=== PATIENT | female | born 1980 | race Caucasian/White ===

== ENCOUNTER 2021-01-24 15:21 | Emergency (ER) | payer MEDICAID, SELFPAY ==
[2021-01-24 15:47] VITALS: BP 119/81; PULSE 88; RESP 16; TEMP 36.6; O2SAT 98; BMI 28.3
--- NOTE | 2021-01-24 17:31 | ED_ITS ---
HPI - Abdominal Pain General: Chief Complaint: Abdominal Pain Stated Complaint: headahce, nausea, pressure in groin Time Seen by Provider: 01/24/21 17:31 Source: patient Mode of arrival: ambulatory Limitations: no limitations History of Present Illness: HPI narrative: Patient comes in today with complaints of right lower quadrant abdominal pain. Patient appears well. Patient appears in mild to moderate pain. Patient states pain has been there for about 3 days. Has worsened over the last 1 day. Patient reports that pain is in the right lower quadrant of the abdomen/ovarian area. Patient also reports some pain going down her right leg and radiating into her back. MD elicited complaint: abdominal pain Location: RLQ Severity: moderate Radiation: back Relieving factors: rest Associated Symptoms: Reports no associated symptoms Related Data: Date of Last Menstrual Period: 01/22/21 Review of Systems General: Reports: 10 or more systems reviewed and unremarkable except in HPI and below GI: Reports: abdominal pain [facility] ED Female Reproductive History: Date of last menstrual period: 01/22/21 Physical Exam Const: COMMON NORMALS: no acute distress and patient oriented x3 GENERAL APPEARANCE: cooperative HENMT: COMMON NORMALS: normocephalic and Normal external nose present HEAD & SCALP: normal to inspection and normocephalic NOSE: Normal external nose present MOUTH: Normal oral and palatal mucosa present Eye: GENERAL EYE: appearance normal, both eyes and all related structures Neck/C-Spine: COMMON NORMALS: full ROM Chest: COMMONS NORMALS: normal inspection of the chest Resp: COMMON NORMALS: normal respiratory effort EFFORT & INSPECTION: Yes able to speak in complete sentences Cardio: COMMON NORMALS: regular rate and regular rhythm RATE: regular rate RHYTHM: regular rhythm GI: COMMON NORMALS: Soft to palpation AUSCULTATION: Yes normoactive bowel sounds PALPATION: Yes Soft to palpation and Yes Tenderness to palpation present (GI) Details: RLQ : COMMON NORMALS: Yes no CVA tenderness BLADDER/KIDNEY EXAM: Yes no CVA tenderness Back/Pelvis: COMMON NORMALS: no CVA tenderness and thoracic and lumbar spine normal to inspection Extremity: COMMON NORMALS: normal to inspection Neuro: COMMON NORMALS: patient oriented x3 and moves all extremities Psych: COMMON NORMALS: mental status grossly normal and cooperative Skin: COMMON NORMALS: no rashes or lesions noted GENERAL SKIN EXAM: no rashes or lesions noted Course Vital Signs: Vital signs: Vital Signs Temperature 97.9 F 01/24/21 15:47 Pulse Rate 88 01/24/21 15:47 Respiratory Rate 16 01/24/21 15:47 Blood Pressure 119/81 01/24/21 15:47 Pulse Oximetry 97 01/24/21 17:45 MDM - Abdominal Pain MDM Narrative: Medical decision making narrative: Patient comes in today with complaints of right lower quadrant abdominal pain radiating into the right inguinal area and low back. Patient reports pain is worsened over the last 2 days. Patient also reports some radiation of pain into her right upper leg. Abdomen is soft with some right lower quadrant abdominal pain. Exam otherwise is normal. Vital signs are normal. Differential diagnosis includes but not limited to acute appendicitis, right ovarian cyst, musculoskeletal pain. Laboratory values were unremarkable. Urinalysis was clear. test was negative. CT of the abdomen pelvis noted no abnormality. Reviewed exam with patient recommended treatment for a musculoskeletal type pain suggestive of either may be a right hip bursitis or some lumbar sacral pain. Patient reported understanding agreed to plan. Lab Data: Labs: Lab Results 01/24/21 01/24/21 01/24/21 Range/Units 17:52 18:08 18:08 WBC 8.9 (4.0-10.0) 10^3/ uL RBC 4.54 (4.1-5.3) 10^6/u L Hgb 14.9 (11.5-15.3) g/dL Hct 45.1 (37.0-47.0) % MCV 99.3 H (81-99) fL MCH 32.8 (28.0-34.0) pg MCHC 33.0 (30.0-36.0) g/dL RDW 13.6 (12.1-15.1) % Plt Count 303 (130-400) 10^3/c mm MPV 10.6 H (7.4-10.4) fL Neut % (Auto) 68.3 % Lymph % (Auto) 23.4 % Tompkins % (Auto) 4.4 % Eos % (Auto) 2.7 % Baso % (Auto) 0.9 % Neut # (Auto) 6.08 (1.8-7.7) 10^3/u L Lymph # (Auto) 2.1 (0.8-4.8) 10^3/u L Tompkins # (Auto) 0.4 (0.2-0.9) 10^3/u L Eos # (Auto) 0.2 (0.0-0.8) 10^3/u L Baso # (Auto) 0.1 (0.0-0.1) 10^3/u L Nucleated RBC % (a uto) 0 % Nucleated RBCs # 0.0 /100WBC Sodium 141 (136-145) mmol/L Potassium 3.5 (3.5-5.1) mmol/L Chloride 102 (98-107) mmol/L Carbon Dioxide 24 (22-29) mmol/L Anion Gap 18.5 (5-19) BUN 5 L (6-20) mg/dL Creatinine 0.5 (0.5-0.9) mg/dL GFR Calculation 136.0 H (90-130) mL/min Glucose 107 (65-115) mg/dL Calculated Osmolal ity 290 (285-295) mOsm/k g Calcium 9.0 (8.5-10.5) mg/dL Total Bilirubin 0.2 (0.15-1.2) mg/dL AST 15 (0-32) U/L ALT 12 (0-33) U/L Alkaline Phosphata se 67 (35-105) IU/L Total Protein 7.9 (6.6-8.7) g/dL Albumin 4.7 (3.5-5.2) g/dL Globulin 3.2 (1.3-4.6) g/dL HCG, Qual (Negative) Urine Color Yellow (Yellow) Urine Appearance Clear (CLEAR) Urine pH 5 (5-7) Ur Specific Gravit y 1.010 (1.005-1.030) Urine Protein Neg (Negative) Urine Glucose (UA) Norm (Normal) Urine Ketones Negative (Negative) Urine Blood Neg (Negative) Urine Nitrate Negative (Negative) Urine Bilirubin Neg (Negative) Urine Urobilinogen Norm (Negative) mg/dL Ur Leukocyte Tammie ase Negative (Negative) 01/24/21 Range/Units 18:08 WBC (4.0-10.0) 10^3/ uL RBC (4.1-5.3) 10^6/u L Hgb (11.5-15.3) g/dL Hct (37.0-47.0) % MCV (81-99) fL MCH (28.0-34.0) pg MCHC (30.0-36.0) g/dL RDW (12.1-15.1) % Plt Count (130-400) 10^3/c mm MPV (7.4-10.4) fL Neut % (Auto) % Lymph % (Auto) % Tompkins % (Auto) % Eos % (Auto) % Baso % (Auto) % Neut # (Auto) (1.8-7.7) 10^3/u L Lymph # (Auto) (0.8-4.8) 10^3/u L Tompkins # (Auto) (0.2-0.9) 10^3/u L Eos # (Auto) (0.0-0.8) 10^3/u L Baso # (Auto) (0.0-0.1) 10^3/u L Nucleated RBC % (a uto) % Nucleated RBCs # /100WBC Sodium (136-145) mmol/L Potassium (3.5-5.1) mmol/L Chloride (98-107) mmol/L Carbon Dioxide (22-29) mmol/L Anion Gap (5-19) BUN (6-20) mg/dL Creatinine (0.5-0.9) mg/dL GFR Calculation (90-130) mL/min Glucose (65-115) mg/dL Calculated Osmolal ity (285-295) mOsm/k g Calcium (8.5-10.5) mg/dL Total Bilirubin (0.15-1.2) mg/dL AST (0-32) U/L ALT (0-33) U/L Alkaline Phosphata se (35-105) IU/L Total Protein (6.6-8.7) g/dL Albumin (3.5-5.2) g/dL Globulin (1.3-4.6) g/dL HCG, Qual Negative (Negative) Urine Color (Yellow) Urine Appearance (CLEAR) Urine pH (5-7) Ur Specific Gravit y (1.005-1.030) Urine Protein (Negative) Urine Glucose (UA) (Normal) Urine Ketones (Negative) Urine Blood (Negative) Urine Nitrate (Negative) Urine Bilirubin (Negative) Urine Urobilinogen (Negative) mg/dL Ur Leukocyte Tammie ase (Negative) Discharge Plan Discharge Patient Disposition: Home Clinical Impression: Acute pain of right hip Abdominal pain Qualifiers: Abdominal location: right lower quadrant Qualified Code(s): R10.31 - Right lower quadrant pain Condition: Stable Prescriptions: New diclofenac potassium 50 mg tablet 50 mg PO Q8H PRN (Reason: pain) Qty: 14 RF: 0 Discharge Orders: Discharge ED (Routine); Ordered 01/24/21 Ordered By: Mariano Reich Referrals: Yaakov Hoyt MD [Primary Care Provider] - Discharge Diet: Usual diet Discharge Activity: Increase activity as tolerated Patient Instructions: Abdominal Pain (ED), Opioid Safety Activity Restrictions/Additional Instructions: Activity as tolerated. Gentle stretching and range of motion exercises for the low back and hip. Increase walking as tolerated. Use ice or heat for further comfort relief. Drink plenty of water with medication. Follow-up with primary care in 3 to 5 days for recheck. Return to the emergency department for new concerns. 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
[2021-01-24 17:45] VITALS: O2SAT 97
--- NOTE | 2021-01-24 17:45 | CTR_ITS ---
PROCEDURE INFORMATION: Exam: CT Abdomen And Pelvis With Contrast Exam date and time: 01/24/2021 6:03 PM Age: 40 years old Clinical indication: Abdominal pain; Localized; Right lower quadrant (rlq); Patient HX: Worsening rlq pain x 3 days radiating into right leg and into back TECHNIQUE: Imaging protocol: Computed tomography of the abdomen and pelvis with contrast. Total images: 231 Radiation optimization: All CT scans at this facility use at least one of these dose optimization techniques: automated exposure control; mA and/or kV adjustment per patient size (includes targeted exams where dose is matched to clinical indication); or iterative reconstruction. Contrast material: OMNI 300; Contrast volume: 95 ml; Contrast route: INTRAVENOUS (IV); COMPARISON: No relevant prior studies available. RADIATION DOSE METRICS: Total DLP (mGy-cm): 1237.68 FINDINGS: Lungs: Limited assessment of the lung bases fails to reveal evidence for active cardiopulmonary process. Liver: No visible hepatic mass or cystic structure. Gallbladder and bile ducts: Normal. No calcified stones. No ductal dilation. Pancreas: Pancreas unremarkable. No visible pancreatic ductal ectasia. Spleen: Normal. No splenomegaly. Adrenal glands: Adrenal glands unremarkable. Kidneys and ureters: No hydronephrosis or perinephric fluid. No visible nephrolithiasis or visible ureterolithiasis. Stomach and bowel: Assessment of the hollow viscus fails to reveal evidence of active or acute pathology. Nonobstructed bowel pattern. No visible acute diverticulitis. No visible adynamic or reactive ileus. Appendix: The appendix is visualized and appears noninflamed. Intraperitoneal space: No visible pneumoperitoneum or intraperitoneal ascites. No visible evidence of mesenteric lymphadenitis or active mesenteritis/panniculitis. Vasculature: Portal vein patent. The abdominal aorta is nonaneurysmal. Multiple phleboliths in the true pelvis. Lymph nodes: No current visible evidence of active mesenteric or retroperitoneal lymphadenopathy. Urinary bladder: Urinary bladder unremarkable. Reproductive: Unremarkable as visualized. Essure stents. Bones/joints: No visible active or acute osseous pathology. Soft tissues: Unremarkable. CT/CT abdomen pelvis w con* [id number] IMPRESSION: Currently no visible evidence for acute abdominal or pelvic pathologic process. Radiation Dose CTDIVOL = (mGy): DLP = 1237.68 (mGy-cm)
[2021-01-24 18:14] LABS: Basophils # 0.1 10^3/uL (0.0-0.1); Basophils % 0.9 %; Eosinophils # 0.2 10^3/uL (0.0-0.8); Eosinophils % 2.7 %; Hematocrit 45.1 % (37.0-47.0); Hemoglobin 14.9 g/dL (11.5-15.3); Lymphocytes # 2.1 10^3/uL (0.8-4.8); Lymphocytes % 23.4 %; Mean Corpuscular Hemoglobin 32.8 pg (28.0-34.0); Mean Corpuscular Volume 99.3 fL (81-99); Mean Platelet Volume 10.6 fL (7.4-10.4); Monocytes # 0.4 10^3/uL (0.2-0.9); Monocytes % 4.4 %; Neutrophils # 6.08 10^3/uL (1.8-7.7); Neutrophils % 68.3 %; Nucleated Red Blood Cells % 0 %; Platelet Count 303 10^3/cmm (130-400); Red Blood Count 4.54 10^6/uL (4.1-5.3); Red Cell Distribution Width 13.6 % (12.1-15.1); White Blood Count 8.9 10^3/uL (4.0-10.0)
[2021-01-24] MEDS: ketorolac 30 mg/mL INJ 15 MG IVP (18:21)
[2021-01-24 18:23] LABS: Add Urine Microscopic? NO; Charge for UA Resulting for Rev
[2021-01-24 18:26] LABS: HCG, Serum Qual Negative (Negative)
--- NOTE | 2021-01-24 18:27 | PC.NURSE ---
pt to CT by stretcher with tech
[2021-01-24] MEDS: iohexol 300 mg/mL 100 mL Btl IV (18:28)
[2021-01-24 18:29] LABS: Bilirubin Urine Neg (Negative); Blood Urine Neg (Negative); Glucose Urine UA Norm (Normal); Ketones Urine Negative (Negative); Leukocyte Esterase Urine Negative (Negative); Nitrate Urine Negative (Negative); Protein Urine Neg (Negative); Urine Appearance Clear (CLEAR); Urine Color Yellow (Yellow); Urobilinogen Urine Norm (Negative); pH Urine 5 (5-7)
[2021-01-24 18:32] LABS: Alanine Aminotransferase 12 U/L (0-33); Albumin Level 4.7 g/dL (3.5-5.2); Alkaline Phosphatase 67 IU/L (35-105); Anion Gap 18.5 (5-19); Aspartate Amino Transferase 15 U/L (0-32); Blood Urea Nitrogen 5 mg/dL (6-20); Carbon Dioxide 24 mmol/L (22-29); Chloride 102 mmol/L (98-107); Globulin 3.2 g/dL (1.3-4.6); Glucose 107 mg/dL (65-115); Osmolality Calculated 290 mOsm/kg (285-295); Potassium 3.5 mmol/L (3.5-5.1); Sodium 141 mmol/L (136-145); Total Bilirubin 0.2 mg/dL (0.15-1.2); Total Protein 7.9 g/dL (6.6-8.7)
[2021-01-24 19:27] VITALS: BP 116/72; PULSE 78; RESP 17; O2SAT 97
== END 2021-01-24 19:27 | disposition home or self-care (01) ==
PROVIDERS: Emergency Provider Nurse Practitioner Family; PCP Family Medicine
DX: R10.31 Right lower quadrant pain (principal); M25.551 Pain in right hip
CPT/HCPCS: 74177; 80053; 81003; 84703; 85025; 96374; 99283; J1885; Q9967

== ENCOUNTER 2023-01-11 09:35 | Emergency (ER) | payer MEDICAID, SELFPAY ==
[2023-01-11 09:47] VITALS: BP 136/86; PULSE 103; RESP 16; TEMP 36.4; O2SAT 99; BMI 30.5
--- NOTE | 2023-01-11 09:54 | XR_ITS ---
WS: [id number] XR hip RT 2-3V wo/w pel* [id number] REASON FOR EXAM: pain FINDINGS: Right hip joint space is intact and relatively well-preserved. Minimal subchondral sclerosis in the acetabulum. No significant abnormality of the femoral head or neck. No soft tissue abnormality. XR/XR hip RT 2-3V wo/w pel* [id number] IMPRESSION: No acute abnormality. 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
--- NOTE | 2023-01-11 18:12 | ED_ITS ---
HPI - Extremity Problem General: Chief complaint: Extremity Injury, Lower Stated complaint: right hip pain Time Seen by Provider: 01/11/23 11:10 Source: patient Mode of arrival: ambulatory Limitations: no limitations History of Present Illness: Patient presents emergency department today for evaluation treatment of approximately 2 weeks of right lateral hip pain radiating down the lateral side of her right upper thigh. Patient denies any known injuries but states that due to her pain, her leg gave out yesterday at her hip causing her to fall. She denies tingling or numbness into the extremity but notes that shooting pain. She hurts worse when she walks on the lateral side of her right foot. She also has worse pain when she sits on her right hip or on the right lateral buttock region. She reports a history of bursitis in the past of both hips and an elbow but, is unaware of any specific injury precipitating onset of her symptoms. She did push mow her yard during this time which acutely worsened her symptoms. Not had any bowel or bladder dysfunction. She has been trying heating pad at home with minimal relief Review of Systems General: Reports: 10 or more systems reviewed and unremarkable except in HPI and below Musc: Reports: extremity pain and joint pain Physical Exam Const: COMMON NORMALS: no acute distress, patient oriented x3 and alert HENMT: COMMON NORMALS: normocephalic, atraumatic and hearing grossly normal bilaterally HEAD & SCALP: normocephalic and atraumatic Eye: COMMON NORMALS: Equal, round and reactive pupils present, EOMs intact bilaterally and conjunctivae normal CONJUNCTIVA: Yes conjunctivae normal PUPIL: Yes Equal, round and reactive pupils present Neck/C-Spine: COMMON NORMALS: full ROM and no JVD Lymph: LYMPHATIC: no lymphadenopathy noted Resp: COMMON NORMALS: normal respiratory effort, No retractions and No use of accessory muscles Cardio: COMMON NORMALS: no JVD and regular rate RATE: regular rate Extremity: NARRATIVE EXTREMITY EXAM: Patient is independently ambulatory and weightbearing but, is obviously uncomfortable-she is constantly turning and bending to try and find a comfortable position here in the exam room. Patient is point tender over her right trochanter and, point tender along the IT band of her right lateral upper thigh. Patient demonstrates full flexion extension of the joints however. Neuro: COMMON NORMALS: patient oriented x3 SENSORIUM/ORIENTATION: Yes alert Psych: COMMON NORMALS: mental status grossly normal, Normal thought process present, cooperative and normal affect THOUGHT PROCESS: Normal thought process present Skin: COMMON NORMALS: no rashes or lesions noted and turgor normal GENERAL SKIN EXAM: no rashes or lesions noted and turgor normal Course Vital Signs: Vital signs: Vital Signs Temperature 97.5 F L 01/11/23 09:47 Pulse Rate 103 H 01/11/23 09:47 Respiratory Rate 16 01/11/23 09:47 Blood Pressure 136/86 01/11/23 09:47 Pulse Oximetry 99 01/11/23 09:47 Oxygen Delivery Me thod 01/11/23 09:47 MDM - Extremity (Nontraumatic) Medical Decision Making Patient presents to the emergency department today complaining of right hip and right upper thigh pain. Without known injury, fracture is very unlikely however, we did obtain some films to look for any signs of acute concern such as avulsion, fluid around the joint, or an avascular necrosis. All findings were negative. Given the patient's point specific tenderness over the trochanter extending down the IT band, patient most likely has some IT band inflammation worsened by trochanteric bursitis. Since this does seem to be a recurrence for the patient I did initiate a referral to orthopedics to discuss any continued evaluation or future interventions that may be required. Until then, patient is treated with anti-inflammatory medications and return precautions given. Differential Diagnosis Likely gout (Osteoarthritis, IT band syndrome, sciatica, bursitis), cellulitis and lower extremity edema Lab Data Radiology Impressions Hip/Pelvis X-Ray 01/11/23 09:54 IMPRESSION: No acute abnormality. 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 Discharge Plan Discharge Patient Disposition: Home Clinical Impression: Trochanteric bursitis of right hip, Iliotibial band syndrome of right side Condition: Stable Prescriptions: New Voltaren Arthritis Pain 1 % gel 4 g topical QID Qty: 100 0RF Rx Instructions: apply to right outer hip and thigh cyclobenzaprine 10 mg tablet 10 mg PO TID Qty: 14 0RF methylprednisolone 4 mg tablets,dose pack See Rx Instructions PO .COMPLEX Qty: 21 0RF Rx Instructions: orally per package directions No Action diclofenac potassium 50 mg tablet 50 mg PO Q8H PRN (Reason: pain) Qty: 14 0RF Discharge Orders: Discharge ED (Routine); Ordered 01/11/23 Ordered By: Yohana Beckwith Referrals: Yaakov Hoyt MD [Primary Care Provider] - Discharge Diet: Usual diet Discharge Activity: Increase activity as tolerated Patient Instructions: Bursitis - Hip, Tendinitis (ED) Activity Restrictions/Additional Instructions: X-ray today shows no concerns for any acute structural abnormalities. Given the location of your pain I am suspicious for return of trochanteric bursitis and, do believe your IT band is also involved. I have given you some information about bursitis of the hip and, some information about tendinitis-though this handout on tendinitis is not necessarily specific to your described area of pain today. Nursing had indicated that the NSAID you would been taking was causing you to have an upset stomach. I am switching that medication over to a topical which you can apply to the outer hip and down your right thigh. I am also giving you some muscle relaxers and steroids further anti-inflammatory effect. I also requested we get you set up for follow-up appointment with orthopedics to discuss the recurrence of this bursitis as, it may continue to recur and, you may require further intervention in the future if it continues to be a problem or, requires a procedure down the road. Try and avoid any strenuous activity for the next few days. 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
--- NOTE | 2023-01-12 14:20 | DCPLANNER ---
Addendum entered by Nissa Lafleur 02/03/23 08:29: Patient had a follow up appointment scheduled with ortho - patient did not attend appointment. Addendum entered by Nissa Lafleur 01/13/23 15:19: Patient has a follow up appointment scheduled for Wednesday, February 01, 2023 at 10:[address] Alcantara at ortho. Original Note: manufacturing operations manager had message to schedule a follow up appointment for patient with ortho. manufacturing operations manager sent patients information to the front office staff at ortho. Patients information will be printed and reviewed. Clinic will call patient with appointment information.
== END 2023-01-11 12:03 | disposition home or self-care (01) ==
PROVIDERS: Emergency Provider Physician Assistant; PCP Family Medicine
DX: M70.61 Trochanteric bursitis, right hip (principal); M76.31 Iliotibial band syndrome, right leg
CPT/HCPCS: 73502; 99283